=== PATIENT | female | born 1955 | race Asian ===

== ENCOUNTER 2016-10-24 14:07 | Emergency (ER) | payer OTHER ==
[~2016-10-24] VITALS: Ht 165.1 cm; Wt 59.0 kg
--- NOTE | 2016-10-24 15:09 | RAD ---
2 view CXR: Clinical indications: Shortness of breath. Drainage with blood. Symptoms have been present for one day.. Comparison: November 26, 2008. Findings: No acute lung infiltrate or pleural effusion or pulmonary edema or lung mass or pneumothorax is seen. The heart size, pulmonary vasculature, mediastinum and both reta are unremarkable. The osseous structures appear intact. Impression: No acute radiographic abnormality is seen.
--- NOTE | 2016-10-24 16:02 | ED.ADGEN ---
Past History Past Medical History: Anxiety, Cancer, GERD, Other Past Surgical History: Other Smoking: Non-smoker Alcohol Use: None Drug Use: None Adult General Chief Complaint Chief Complaint Nasal congestion, facial pain, blood tinged sputum HPI HPI Patient is a 60 -year-old female of descent resents with sinus pain, tenderness, left maxillary facial pain, tinnitus and muffled hearing in left ear. Patient also reports one episode of clear bloody mucus in her throat earlier this afternoon. Denies cough, chest pain. Patient is not on anticoagulation therapy. Denies recent nose bleeds. No other symptoms or complaints. Review of Systems Review of Systems Review symptoms as per history of present illness. All other review symptoms are negative. Allergies Allergies Allergies Coded Allergies Type Severity Reaction Last Updated Verified No Known Drug Allergies 01/29/14 No Physical Exam Physical Exam Constitutional: Well developed, well nourished, no acute distress, non-toxic appearance. HENT: Normocephalic, atraumatic, bilateral external ears normal, TMs, bulging with clear effusions, oropharynx moist, no oral exudates, nose, phlegm mucosal, with turbinate swelling and clear rhinorrhea, left maxillary and frontal sinus tenderness to palpation. No epistaxis, crusted blood, or blood in posterior oropharynx. Eyes: PERRLA, EOMI, conjunctiva normal. Neck: Normal range of motion, supple, no lymphadenopathy. Cardiovascular:Heart rate regular rhythm, no murmur. Lungs & Thorax: Bilateral breath sounds clear to auscultation. Abdomen: Bowel sounds normal, soft, no tenderness. Skin: Warm, dry. Back: No tenderness, no CVA tenderness. Extremities: No tenderness. Neurologic: Alert and oriented X 3, normal motor function, normal sensory function, no focal deficits noted. Psychologic: Affect normal, judgement normal, mood normal. Current Patient Data Vital Signs Vital Signs Date Time Temp Pulse Resp B/P Pulse Ox O2 Delivery O2 Flow Rate FiO2 10/24/16 14:07 98.4 86 20 97 Room Air EKG EKG [] Radiology/Procedures Radiology/Procedures [Chest XR: NAD] Impressions: Sinus tenderness with second reported blood tinged sputum Course & Med Decision Making Course & Med Decision Making Pertinent Labs and Imaging studies reviewed. (See chart for details) [Patient with sinusitis on exam. Chest x-ray clear. Sputum is clear. Will treat for presumptive arterial sinus infection with PCP follow-up. Return precautions reviewed.] Final Impression Final Impression [1 sinusitis] Problems: Dragon Disclaimer Dragon Disclaimer This electronic medical record was generated, in whole or in part, using a voice recognition dictation system. YEISON WALLS DO Oct 24, 2016 16:02
[2016-10-24 16:09] VITALS: BP 130/73
== END 2016-10-24 16:05 | disposition home or self-care (01) ==
LOC: ER 14:08
DX: J32.9 Chronic sinusitis, unspecified (principal); H93.8X2 Other specified disorders of left ear; K21.9 Gastro-esophageal reflux disease without esophagitis
CPT/HCPCS: 71020; 99284

== ENCOUNTER → 2019-04-26 | Outpatient (CLI) | payer OTHER ==
--- NOTE | 2019-04-26 15:29 | RAD ---
Neck soft tissue ultrasound 04/26/2019 INDICATION: Localized enlarged lymph nodes. COMPARISON: None available. TECHNIQUE: Sonographic evaluation of the neck was performed. FINDINGS: No suspicious cystic or solid mass is identified. There is area of interest, normal muscle soft tissues visualized. Carotid and jugular veins are intact. At the base of the left neck there are nonenlarged lymph nodes measuring 6 x 3 mm and 6 x 2 mm. IMPRESSION: No suspicious abnormality identified by ultrasound. If there is persistent clinical concern, further evaluation with CT neck is recommended. Electronically signed by: Aleida Goode MD (04/26/2019 3:26 PM) [facility]
== END | disposition home or self-care (01) ==
LOC: US 14:15
PROVIDERS: ATTEND Physician Assistant
DX: R59.0 Localized enlarged lymph nodes (principal)
CPT/HCPCS: 76536